=== PATIENT | female | born 1995 | race Caucasian/White ===

== ENCOUNTER 2016-08-28 08:46 | Emergency (ER) | payer MEDICAID ==
[2016-08-28 09:53] VITALS: BP 106/61
--- NOTE | 2016-08-30 11:04 | ER ---
DATE SEEN: 08/28/2016 TIME SEEN: The patient was seen at approximately 0925. CHIEF COMPLAINT: Two days' cough, mild sore throat, and mild sternal discomfort. HISTORY OF PRESENT ILLNESS: Her brother was diagnosed with influenza B three days ago. He has been staying with her in her apartment. Last menstrual period was on 08/18/2016, is using a form of contraception. She works at [employer] and smokes infrequently, but occasionally. She has mild chest discomfort. No shortness of breath. No gastrointestinal symptoms or symptoms. She has mild myalgia. ALLERGIES: Negative. SOCIAL HISTORY: She smokes 3 to 5 cigarettes per day. No diabetes, heart disease, or other serious illnesses. FAMILY HISTORY: Mother and father are living and well. Sibling has influenza, but otherwise healthy. PHYSICAL EXAMINATION: VITAL SIGNS: Blood pressure 127/69, heart rate 100, respirations 20, oxygen saturation 100%, temperature is 36.5 degrees centigrade. HEENT: PERRLA intact. Pharynx with moderate erythema in the uvula. Mild cervical lymphadenopathy. NECK: Supple. TMs negative. LUNGS: Clear to auscultation without rales, rhonchi, or wheezes. HEART: S1 and S2. No irregular rate or rhythm. On my exam, sinus tachycardia had relented. ABDOMEN: Soft. No hepatosplenomegaly, guarding, or discomfort. DERMIS: No rash history. LABORATORY DATA: Rapid strep is negative. ASSESSMENT: Viral bronchitis. PLAN: The patient advised we would not treat with antibiotics per CDC, IDSA, AFP, and Internal Medicine recommendations. Follow up with doctor on as-needed basis. Use Tylenol or ibuprofen for discomfort. Encouraged very much to get the flu vaccine. /[id number] BERNY/RAVEN
== END 2016-08-28 09:50 | disposition home or self-care (01) ==
LOC: FB.ED 08:46
DX: J20.8 Acute bronchitis due to other specified organisms (principal); B97.89 Other viral agents as the cause of diseases classified elsewhere; F17.210 Nicotine dependence, cigarettes, uncomplicated
CPT/HCPCS: 87081; 87430; 99283

== ENCOUNTER 2025-04-08 04:46 | Emergency (ER) | payer BC ==
[2025-04-08 04:58] VITALS: BP 121/76; PULSE 76
[2025-04-08] MEDS: Ondansetron 4 MG Tab.DIS PO ONE (05:10)
[2025-04-08] MEDS: Ketorolac 30 MG/ML SDV IM ONE (05:10)
[2025-04-08] MEDS: diphenhydrAMINE 50 MG/ML SDV IM ONE (05:10)
== END 2025-04-08 05:33 | disposition home or self-care (01) ==
LOC: FB.ED 04:46
DX: G43.909 Migraine, unspecified, not intractable, without status migrainosus (principal)
CPT/HCPCS: 96372; 99283; J1200; J1885; Q0162